=== PATIENT | male | born 1940 | race Caucasian/White ===

== ENCOUNTER → 2017-01-19 | Outpatient (CLI) | payer OTHER, MEDICAID | LOC: BMCIMAGING 15:08 | PROVIDERS: ATTEND Internal Medicine Cardiovascular Disease | DX: R91.1 Solitary pulmonary nodule (principal); I65.23 Occlusion and stenosis of bilateral carotid arteries; I77.810 Thoracic aortic ectasia; Z86.73 Personal history of transient ischemic attack (TIA), and cerebral infarction without residual deficits; Z95.1 Presence of aortocoronary bypass graft ==

== ENCOUNTER → 2017-01-22 | Outpatient (CLI) | payer OTHER, MEDICAID | LOC: FIMAGING 12:53 | PROVIDERS: ATTEND Internal Medicine Cardiovascular Disease | DX: R91.1 Solitary pulmonary nodule (principal); R05 Cough; R91.8 Other nonspecific abnormal finding of lung field; R42 Dizziness and giddiness; I48.91 Unspecified atrial fibrillation; I10 Essential (primary) hypertension; Z95.1 Presence of aortocoronary bypass graft; Z86.73 Personal history of transient ischemic attack (TIA), and cerebral infarction without residual deficits ==

== ENCOUNTER → 2017-02-23 | Outpatient (CLI) | payer OTHER, MEDICAID ==
[~2017-02-23] MED LIST: IOPAMIDOL (ISOVUE 370) 100 ML BTL IV ONE
== END ==
LOC: FIMAGING 15:13
PROVIDERS: ATTEND Psychiatry & Neurology Neurology
DX: R42 Dizziness and giddiness (principal); J32.0 Chronic maxillary sinusitis; I70.8 Atherosclerosis of other arteries; I65.23 Occlusion and stenosis of bilateral carotid arteries
CPT/HCPCS: 70496; 70498; 70551; Q9967

== ENCOUNTER 2017-12-03 17:18 | Observation (INO) | payer MEDICAID, OTHER ==
--- NOTE | 2017-12-03 17:24 | EDPHY ---
H & P Time Seen by Provider: 12/03/17 17:24 HPI/ROS: CHIEF COMPLAINT: Chest tightness HISTORY OF PRESENT ILLNESS: The patient arrives by EMS, says that 1 hr before arrival had chest tightness at his living facility. Since resolved. Symptoms lasted about half an hour. Did not radiate, not associated with cough or shortness of breath dizziness lightheadedness or syncope. Was not positional or exertional. He has had previous stenting and bypass but never had a myocardial infarction. Symptoms were mild at the time and gone now. REVIEW OF SYSTEMS: Eye: no change in vision ENT: no sore throat Cardiac: HPI Pulmonary: no cough or SOB Abdomen: no vomiting, diarrhea, abdominal pain Musculoskeletal: no back pain Skin: no rash Neuro: no headache Constitutional: no fever : no urinary symptoms A comprehensive 10 point review of systems is otherwise negative aside from elements mentioned in the history of present illness. However have further history and review of systems is limited by the patient's self-described poor memory. PAST MEDICAL HISTORY: AFib, coronary disease with bypass and stenting, dementia , stroke Social history: Nonsmoker General Appearance: Alert and conversant, cooperative. Eyes: No scleral icterus. ENT, Mouth: Normal mucous membranes. Respiratory: Normal respiratory effort, breath sounds equal, lungs are clear to auscultation. Cardiovascular: Regular rate and rhythm. Gastrointestinal: Abdomen is soft and non tender. Neurological: Alert, face symmetric, normal motor and sensory in extremities. Skin: Warm and dry, no rashes. Musculoskeletal: No peripheral edema. Psychiatric: Not agitated. Emergency Department course/MDM: Oral aspirin, EKG chest x-ray and troponin. Not short of breath, symptoms resolved, pulmonary embolism would be unlikely. 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 Chest tightness with history of previous documented coronary disease and bypass surgery. Admission for further risk stratification warranted. Discussed with son who states understanding and agreement with the plan. Smoking Status: Former smoker Constitutional: Initial Vital Signs Temperature (C) 36.8 C 12/03/17 17:25 Heart Rate 76 12/03/17 17:25 Respiratory Rate 18 12/03/17 17:25 Blood Pressure 165/85 H 12/03/17 17:25 O2 Sat (%) 93 12/03/17 17:25 O2 Delivery Mode Room Air Allergies/Adverse Reactions: No Known Allergies Allergy (Verified 12/03/17 19:36) Home Medications: Medication Instructions Recorded Atenolol [Tenormin 25 mg (*)] 12.5 mg PO BID 12/03/17 Docusate Sodium [Colace 100 MG (*)] 100 mg PO BID 12/03/17 Famotidine [Pepcid 20 MG (*)] 20 mg PO BID 12/03/17 Levothyroxine [Synthroid 50 mcg 50 mcg PO MOTUWETHFR@0600 12/03/17 (*)] Mirabegron [Myrbetriq] 25 mg PO HS 12/03/17 Polyethylene Glycol 3350 [Miralax 17 gm PO DAILY 12/03/17 17 gm (*)] Rivaroxaban [Xarelto] 20 mg PO DAILY 12/03/17 Sennosides [Senokot] 17.2 mg PO HS 12/03/17 Medical Decision Making - Diagnostics EKG Interpretation: 12-lead EKG interpreted by me; official reading is in computer system. My interpretation is sinus rhythm rate 64 with biphasic anterior T-waves in V1 and V2. Imaging Results: Imaging Impressions Chest X-Ray 12/03/17 17:29 Impression: Prior cardiac surgery. No acute cardiopulmonary abnormality.. Imaging: I viewed and interpreted images myself Differential Diagnosis: Differential diagnosis considered for chest pain including but not limited to myocardial ischemia, aortic dissection, pericarditis, pulmonary embolus, chest wall pain, pleural inflammation and pulmonary infectious causes. Consult/Admit Bed Type: [place] [address] - Data Points Laboratory Results: Laboratory Results 12/03/17 17:25 12/03/17 17:25 12/03/17 12/03/17 12/03/17 17:32 17:25 17:25 WBC 8.56 10^3/uL 10^3/uL (3.80-9.50) RBC 5.21 10^6/uL 10^6/uL (4.40-6.38) Hgb 15.7 g/dL g/dL (13.7-17.5) Hct 45.2 % % (40.0-51.0) MCV 86.8 fL fL (81.5-99.8) MCH 30.1 pg pg (27.9-34.1) MCHC 34.7 g/dL g/dL (32.4-36.7) RDW 13.4 % % (11.5-15.2) Plt Count 208 10^3/uL 10^3/uL (150-400) MPV 10.6 fL fL (8.7-11.7) Neut % (Auto) 54.8 % % (39.3-74.2) Lymph % (Auto) 32.6 % % (15.0-45.0) Elbert % (Auto) 8.8 % % (4.5-13.0) Eos % (Auto) 2.9 % % (0.6-7.6) Baso % (Auto) 0.7 % % (0.3-1.7) Nucleat RBC Rel Count 0.0 % % (0.0-0.2) Absolute Neuts (auto) 4.69 10^3/uL 10^3/uL (1.70-6.50) Absolute Lymphs (auto) 2.79 10^3/uL 10^3/uL (1.00-3.00) Absolute Monos (auto) 0.75 10^3/uL 10^3/uL (0.30-0.80) Absolute Eos (auto) 0.25 10^3/uL 10^3/uL (0.03-0.40) Absolute Basos (auto) 0.06 10^3/uL 10^3/uL (0.02-0.10) Absolute Nucleated RBC 0.00 10^3/uL 10^3/uL (0-0.01) Immature Gran % 0.2 % % (0.0-1.1) Immature Gran # 0.02 10^3/uL 10^3/uL (0.00-0.10) Sodium 142 mEq/L mEq/L (135-145) Potassium 4.1 mEq/L mEq/L (3.3-5.0) Chloride 104 mEq/L mEq/L (97-110) Carbon Dioxide 28 mEq/l mEq/l (22-31) Anion Gap 10 mEq/L mEq/L (8-16) BUN 20 mg/dL mg/dL (7-23) Creatinine 1.1 mg/dL mg/dL (0.7-1.3) Estimated GFR > 60 Glucose 78 mg/dL mg/dL (70-100) Calcium 9.7 mg/dL mg/dL (8.5-10.4) POC Troponin I 0.01 ng/mL ng/mL (0.00-0.08) Medications Given: Discontinued Medications Aspirin (Aspirin) 324 mg PO EDNOW ONE Stop: 12/03/17 17:30 Last Admin: 12/03/17 17:34 Dose: 324 mg Point of Care Test Results: Chemistry 12/03/17 17:32 POC Troponin I 0.01 ng/mL ng/mL (0.00-0.08) Departure - Departure Disposition: [facility] Inpatient Acute Clinical Impression: Chest pain Qualifiers: Chest pain type: unspecified Qualified Code(s): R07.9 - Chest pain, unspecified Condition: Good
[2017-12-03] MEDS ORDERED: ASPIRIN 81 MG CHEWABLE TAB PO ONE (17:29)
--- NOTE | 2017-12-03 17:40 | CPEKG ---
Test Reason : OPEN Blood Pressure : / mmHG Vent. Rate : 064 BPM Atrial Rate : 064 BPM P-R Int : 266 ms QRS Dur : 093 ms QT Int : 413 ms P-R-T Axes : 195 051 058 degrees QTc Int : 426 ms Sinus or ectopic atrial rhythm Prolonged AR interval Abnormal R-wave progression, early transition Borderline ST elevation, anterior leads Confirmed by Perez Gómez ([id number]) on 12/03/2017 5:40:21 PM Referred By: Confirmed By:Perez Gómez
[2017-12-03 17:58] LABS: PLATELET COUNT 208 10^3/uL (150-400)
[2017-12-03] MEDS ORDERED: ACETAMINOPHEN 325 MG TAB PO PRN (21:53)
[2017-12-03] MEDS ORDERED: ONDANSETRON DISINTEGRATING 4 MG TAB PO PRN (21:53)
[2017-12-03] MEDS ORDERED: ONDANSETRON 4 MG/2 ML VIAL IVP PRN (21:53)
--- NOTE | 2017-12-03 21:57 | PDGENHP ---
History and Physical - Chief Complaint chest pain - History of Present Illness 77 yo male admitted with chest pain while at his living facility. None exertional. Symptoms lasted about half an hour. His symptoms have fully resolved. Pain Did not radiate, not associated with cough or shortness of breath dizziness lightheadedness or syncope. Was not positional or exertional. He has had previous stenting and bypass. In the ER, EK was non alarming and trop was negative. He was given an Aspirin and admitted PAST MEDICAL HISTORY: AFib, coronary disease with bypass and stenting, dementia , stroke Social history: Nonsmoker FmHx: non contributory History Information - Allergies/Home Medication List Allergies/Adverse Reactions: No Known Allergies Allergy (Verified 12/03/17 19:36) Home Medications: Atenolol [Tenormin 25 mg (*)] 12.5 mg PO BID 12/03/17 [Last Taken 12/03/17 15:00 ] Docusate Sodium [Colace 100 MG (*)] 100 mg PO BID 12/03/17 [Last Taken 12/03/17] Famotidine [Pepcid 20 MG (*)] 20 mg PO BID 12/03/17 [Last Taken 12/03/17] Levothyroxine [Synthroid 50 mcg (*)] 50 mcg PO MOTUWETHFR@0600 12/03/17 [Last Taken 12/03/17] Mirabegron [Myrbetriq] 25 mg PO HS 12/03/17 [Last Taken 12/03/17] Polyethylene Glycol 3350 [Miralax 17 gm (*)] 17 gm PO DAILY 12/03/17 [Last Taken 12/03/17] Rivaroxaban [Xarelto] 20 mg PO DAILY 12/03/17 [Last Taken 12/03/17] Sennosides [Senokot] 17.2 mg PO HS 12/03/17 [Last Taken 12/03/17] I have personally reviewed and updated: medical history, social history - Social History Smoking Status: Former smoker Review of Systems Review of Systems: ROS: 10pt was reviewed & negative except for what was stated in HPI & below Physical Exam Physical Exam: Temp Pulse Resp BP Pulse Ox 36.9 C 58 L 14 135/72 H 95 12/03/17 20:53 12/03/17 20:53 12/03/17 20:53 12/03/17 20:53 12/03/17 20:53 Constitutional: no apparent distress Eyes: PERRL Ears, Nose, Mouth, Throat: moist mucous membranes, hearing normal Cardiovascular: regular rate and rhythym, No edema Respiratory: no respiratory distress, no rales or rhonchi Gastrointestinal: normoactive bowel sounds Skin: warm Musculoskeletal: generalized weakness Neurologic: No AAOx3 Psychiatric: interacting appropriately, not anxious, not encephalopathic Lymph, Heme, Immunologic: No petechiae Lab Data & Imaging Review 12/03/17 17:25 12/03/17 17:25 WBC 8.56 10^3/uL (3.80-9.50) 12/03/17 17:25 RBC 5.21 10^6/uL (4.40-6.38) 12/03/17 17:25 Hgb 15.7 g/dL (13.7-17.5) 12/03/17 17:25 Hct 45.2 % (40.0-51.0) 12/03/17 17:25 MCV 86.8 fL (81.5-99.8) 12/03/17 17:25 MCH 30.1 pg (27.9-34.1) 12/03/17 17:25 MCHC 34.7 g/dL (32.4-36.7) 12/03/17 17:25 RDW 13.4 % (11.5-15.2) 12/03/17 17:25 Plt Count 208 10^3/uL (150-400) 12/03/17 17:25 MPV 10.6 fL (8.7-11.7) 12/03/17 17:25 Neut % (Auto) 54.8 % (39.3-74.2) 12/03/17 17:25 Lymph % (Auto) 32.6 % (15.0-45.0) 12/03/17 17:25 [place] % (Auto) 8.8 % (4.5-13.0) 12/03/17 17:25 Eos % (Auto) 2.9 % (0.6-7.6) 12/03/17 17:25 Baso % (Auto) 0.7 % (0.3-1.7) 12/03/17 17:25 Nucleat RBC Rel Count 0.0 % (0.0-0.2) 12/03/17 17:25 Absolute Neuts (auto) 4.69 10^3/uL (1.70-6.50) 12/03/17 17:25 Absolute Lymphs (auto) 2.79 10^3/uL (1.00-3.00) 12/03/17 17:25 Absolute Monos (auto) 0.75 10^3/uL (0.30-0.80) 12/03/17 17:25 Absolute Eos (auto) 0.25 10^3/uL (0.03-0.40) 12/03/17 17:25 Absolute Basos (auto) 0.06 10^3/uL (0.02-0.10) 12/03/17 17:25 Absolute Nucleated RBC 0.00 10^3/uL (0-0.01) 12/03/17 17:25 Immature Gran % 0.2 % (0.0-1.1) 12/03/17 17:25 Immature Gran # 0.02 10^3/uL (0.00-0.10) 12/03/17 17:25 Sodium 142 mEq/L (135-145) 12/03/17 17:25 Potassium 4.1 mEq/L (3.3-5.0) 12/03/17 17:25 Chloride 104 mEq/L (97-110) 12/03/17 17:25 Carbon Dioxide 28 mEq/l (22-31) 12/03/17 17:25 Anion Gap 10 mEq/L (8-16) 12/03/17 17:25 BUN 20 mg/dL (7-23) 12/03/17 17:25 Creatinine 1.1 mg/dL (0.7-1.3) 12/03/17 17:25 Estimated GFR > 60 12/03/17 17:25 Glucose 78 mg/dL (70-100) 12/03/17 17:25 Calcium 9.7 mg/dL (8.5-10.4) 12/03/17 17:25 POC Troponin I 0.01 ng/mL (0.00-0.08) 12/03/17 17:32 Assessment & Plan Assessment: #Chest pain (Acute) -He has risk factors for CAD but his CP is completely resolved currently and w/ u thus far has been negative -Will obtain TTE -Serial trop's -I will make his NPO at midnight in case TTE (which cant be done until am) is abnormal and we want to stress him. Otherwise, if TTE and trops/tele are unremarkable, he could likely be d/c with op f/u #Afib: -cont BB -cont Xarelto #chronic AC #Hx of Stroke #Hypothyroidism #Gerd Plan: per above cont home meds as appropriate can likely d/c tomorrow pending w/u
[2017-12-04 04:11] LABS: PLATELET COUNT 182 10^3/uL (150-400)
[2017-12-04] MEDS ORDERED: RIVAROXABAN 20 MG TAB PO SCH (09:00)
[2017-12-04] MEDS ORDERED: POLYETHYLENE GLYCOL 3350 17 GM PKT PO SCH (09:00)
[2017-12-04] MEDS ORDERED: DOCUSATE SODIUM 100 MG CAP PO SCH (09:00)
[2017-12-04] MEDS ORDERED: ATENOLOL 25 MG TAB PO SCH (09:00)
[2017-12-04] MEDS ORDERED: FAMOTIDINE 20 MG TAB PO SCH (09:00)
[2017-12-04 12:09] VITALS: BP 171/91
--- NOTE | 2017-12-04 13:06 | ECHO ---
[email or web address] [address] [address] Main: [phone] Fax: Transthoracic Echocardiogram Name: APRIL COLLINS MR#: [id number] Study Date: 12/04/2017 Study Time: 11:25 AM Date of : 1940 Age: 77 year(s) Height: 182.9 cm (72 in.) Weight: 70.76 kg (156 lb.) BSA: 1.92 m2 Gender: Male Examination: Echo Indication: Wellens Syndrome, Chest Pain Image Quality: Contrast: Requested by: Ramon Woodruff BP: 151 mmHg/75 mmHg Heart Rate: Rhythm: Indication: Wellens Syndrome, Chest Pain Procedure Staff Swimming Pool Servicer: Ayan Montilla RDCS Reading Physician: Nehemias Calderón MD Requesting Provider: Conclusions: Normal global systolic LV function. EF is 60 %. There is paradoxic septal motion suggestive of bundle branch block, paced cardiac rhythm, or prior cardiac surgery. Diastolic dysfunction is present. . The left atrium is mildly dilated. The right atrium is mildly dilated. Mild mitral valve regurgitation is present. Mild aortic valve regurgitation is present. Moderate tricuspid regurgitation is present. Based on moderate tricuspid regurgitation, a repeat echo may be considered in 1 yr unless there is a change in clinical status. Measurements: Chambers Valvular Assessment AV/MV Valvular Assessment TV/PV Normal Normal Normal Name Value Range Name Value Range Name Value Range Ao Lizette (MM): 2.8 cm (2.2 cm-3.7 AV Vmax: 0.89 m/s (1 m/s-1.7 TR Vmax: 2.81 mm/s ( - ) cm) m/s) TR PGmax: 32 mmHg ( - ) IVSd (2D): 0.7 cm (0.6 cm-1.1 AV maxP mmHg ( - ) syst. PAP: 37 mmHg ( - ) cm) AV meanP mmHg ( - ) PV Vmax: 0.71 m/s (0.6 m/s-0.9 LVDd (2D): 4.1 cm (4.2 cm-5.9 LVOT Vmax: 0.66 m/s (0.7 m/s-1.1 m/s) cm) m/s) PV PGmax: 2 mmHg ( - ) LVDs (2D): 2.8 cm (2.1 cm-4 AR (PHT): 656 ms ( - ) cm) MV E Vmax: 0.76 m/s ( - ) LVPWd (2D): 0.9 cm (0.6 cm-1 cm) LVEF (2D): 60 (>=54 %) Continued Measurements: Patient: APRIL COLLINS Study Date: 12/04/2017 Page 1 of 2 11:25 AM Chambers Valvular Assessment AV/MV Valvular Assessment TV/PV Name Value Name Value Name Value LADs Lon.3 cm MV E' Septal: 0.06 m/s CVP (est.): 5 mmHg LA Area: 22.5 cm2 MV E/E' Septal: 12.60 LA Volume: 82 ml MV E/E' Lateral: 8.70 LA Volume Index: 42.7 ml/m2 AR Vmax: 2.84 cm/s Findings: Left Ventricle: Normal size left ventricle. No LV hypertrophy. Normal global systolic LV function. EF is 60 %. There is paradoxic septal motion suggestive of bundle branch block, paced cardiac rhythm, or prior cardiac surgery. Diastolic dysfunction is present. . Right Ventricle: Normal size right ventricle. Left Atrium: The left atrium is mildly dilated. Right Atrium: The right atrium is mildly dilated. Mitral Valve: No mitral valve calcification is noted. No mitral stenosis is present. Mild mitral valve regurgitation is present. Aortic Valve: Mild aortic cusp calcification is noted. Mild aortic valve regurgitation is present. No aortic valve stenosis is present. Tricuspid Valve: The tricuspid valve appears normal. The pulmonary artery pressure is normal. Moderate tricuspid regurgitation is present. Pulmonic Valve: The pulmonic valve is normal in appearance and function. Aorta: The aorta is normal. Pericardium: No pericardial effusion. (No Signature Object) Patient: APRIL COLLINS Study Date: 12/04/2017 Page 2 of 2 11:25 AM [id number]
--- NOTE | 2017-12-04 15:54 | GDS ---
PRIMARY CARE PROVIDER: Dr. Pillai. DISCHARGE DIAGNOSIS: Chest pain. HISTORY OF PRESENT ILLNESS: The patient is a 77-year-old gentleman with a past medical history of co ronary artery disease with a history of CABG, as well as percutaneous intervention, who resides at [facility], reported a complaint of chest pain after exertional effort. He was admitted for serial en zymes and further monitoring. On the day after admission, he was not having any recurrent or escalat ing chest pain. His troponins overnight were undetectable and followup ECGs did not show any concern ing changes. He did, as well, undergo an echocardiogram which showed normal systolic left ventricula r function with an estimated ejection fraction at 60%. Diastolic dysfunction was noted. Moderate tr icuspid regurgitation was also seen. With the negative troponins, it was felt that he could discharg e from the hospital with a plan for short-term cardiology followup. I talked with his son, Adeel, over the phone today and he states he has had a cardiology consultation here at [facility] at some poi nt in the past and I recommended that we plan for short-term follow up to discuss outpatient stress t esting potentially. He seemed agreeable to this plan. HOSPITAL COURSE BY PROBLEM: 1. Chest pain, suspect noncardiac related, but he does have cardiac risk factors. I recommend that we plan on short-term followup to reassess and discuss outpatient cardiac stress testing. 2. Dementia, by records. No current medical therapy. 3. Coronary artery disease, history of CABG and percutaneous intervention. Continue with current az dical management. I do not see that the patient is on statin therapy. 4. Atrial fibrillation, rate controlled with atenolol 12.5 mg twice a day. Patient is anticoagulate d with Xarelto. 5. Hypothyroidism. Continue current dosing of levothyroxine at 50 mcg daily. 6. Disposition, the patient appears stable for discharge home today. EXAM: On date of discharge: VITAL SIGNS: Temperature 96.4, blood pressure 156/80, heart rate 64, r espirations 94% on room air. GENERAL: Patient appeared comfortable. He is awake, alert, conversant , no acute distress. HEART: Irregular. No significant murmurs noted. LUNGS: Clear to auscultatio n with normal respiratory effort. ABDOMEN: Soft, nontender, nondistended. : No Crandall catheter i n place. EXTREMITIES: No calf pain with palpation or lower extremity edema. NOTABLE STUDIES: Echocardiogram as detailed above. Troponins negative x3. LDL cholesterol 109, TSH 3.0. Hemoglobin A1c currently pending. DISCHARGE MEDICATIONS: 1. Levothyroxine 50 mcg every Wednesday, Wednesday, Wednesday, and Wednesday. 2. Atenolol 12.5 mg twice a day. 3. MiraLAX 17 g daily. 4. Senokot 17.2 mg nightly. 5. Pepcid 20 mg twice a day. 6. Colace 100 mg twice a day. 7. Xarelto 20 mg daily. 8. Myrbetriq 25 mg nightly. DISCHARGE INSTRUCTIONS: I have recommended a followup visit with his respiratory care instructor at [facility] i n 1-2 weeks' time for reassessment and discuss the potential for outpatient cardiac stress testing. Also recommend to follow up with Dr. Pillai, his primary care provider. 35 minutes time dedicated to discharge efforts. /[id number]/MODL
--- NOTE | 2017-12-04 16:05 | CPEKG ---
Test Reason : OPEN Blood Pressure : / mmHG Vent. Rate : 064 BPM Atrial Rate : 195 BPM P-R Int : 352 ms QRS Dur : 089 ms QT Int : 438 ms P-R-T Axes : 000 075 075 degrees QTc Int : 452 ms Sinus rhythm with 1st degree AV block Abnormal R-wave progression, early transition Confirmed by Nehemias Calderón ([id number]) on 12/04/2017 4:05:26 PM Referred By: Confirmed By:Nehemias Calderón
[2017-12-04] MEDS ORDERED: SENNOSIDES 1 TAB PO SCH (21:00)
[2017-12-04] MEDS ORDERED: Mirabegron [Myrbetriq] 25 MG PO SCH (21:00)
--- NOTE | 2017-12-05 10:01 | ASMTLACE ---
LACE Length of stay for Answers: Less than 1 day current admission Acuity / Level of Answers: No Care: Did the patient have an inpatient admission? Comorbidities - select Answers: Cerebrovascular disease all that apply (CVA, TIA, aneurysms, vasc ular dementia) Coronary Artery Disease Other Notes: Dementia, Afib # of Emergency department Answers: 1-2 visits in the last 6 months Score: 5 Date Signed: 12/05/2017 10:01 AM Electronically Signed By:Monse Michelle RN
--- NOTE | 2017-12-05 10:05 | ASDISCHSUM ---
Discharge Information Plan Status:Home with No Needs Medically Cleared to Leave:12/04/2017 Discharge Date:12/04/2017 04:23 PM CM D/C Disposition:Home, Routine, Self-Care ADT D/C Disposition:Custodial Facility Projected Discharge Date:12/04/2017 04:23 PM Transportation at D/C:Family Discharge Delay Reason: Follow-Up Date:12/04/2017 04:23 PM Discharge Slot:2 - 12:01 pm - 18:00 pm Final Diagnosis:Afib, chest discomfort, hx CAD, CABG, CVA Placement Information Patient Contact Information Contact Name:MARLENA Relationship:Son Address: Work Phone: [place]:ANNALISA Alternate Phone: [facility]/Tour Engine Code:[place] Email: Financial Information Financial Class:Medicare Primary Plan Desc:MEDICARE OUTPATIENT Primary Plan Number:[id number] Secondary Plan Desc: Secondary Plan Number: Assessment Information LACE LACE Length of stay for Answers: Less than 1 day current admission Acuity / Level of Answers: No Care: Did the patient have an inpatient admission? Comorbidities - select Answers: Cerebrovascular disease all that apply (CVA, TIA, aneurysms, vasc ular dementia) Coronary Artery Disease Other Notes: Dementia, Afib # of Emergency department Answers: 1-2 visits in the last 6 months Score: 5 Date Signed: 12/05/2017 10:01 AM Electronically Signed By:Monse Michelle RN [facility] IAM Progress Note CM Note CM Note Notes: Note for Wednesday12/04/17, late entry - [employer] down for maintenance Wednesday afternoon/evening Reviewed chart, spoke with DAPHNEY Vernon regarding discharge plan of care, pt's progress. Pt admitted with chest discomfort, new onset atrial fibrillation. History includes CAD with CABG, CVA, dementia. Pt lives at [facility] independent living. Per Janeen, pt to discharge home independently with no identified needs. Pt's son to provide transport back to [facility]. IM/UGALDE forms signed, placed in chart. Pt to follow up as directed. CM available for any further issues or concerns. Discharge Plan: Home independently Date Signed: 12/05/2017 10:03 AM Electronically Signed By:Monse Michelle RN Intervention Information Intervention Type:*IM-Signed Date of Service:12/05/2017 10:00 AM Patient Type:Observation Staff Member:DAPHNEY Michelle Taylor Hours: Discipline: Severity: Comment: Intervention Type:*UGALDE-Signed Date of Service:12/05/2017 10:00 AM Patient Type:Observation Staff Member:DAPHNEY Michelle Taylor Hours: Discipline: Severity: Comment:
[2017-12-06] MEDS ORDERED: LEVOTHYROXINE 50 MCG TAB PO SCH (06:00)
== END 2017-12-04 16:23 ==
LOC: EDUNIT# → F2W 20:10
PROVIDERS: ADMIT Family Medicine; ATTEND Internal Medicine
DX: R07.9 Chest pain, unspecified (principal); F03.90 Unspecified dementia, unspecified severity, without behavioral disturbance, psychotic disturbance, mood disturbance, and anxiety; I48.91 Unspecified atrial fibrillation; I25.10 Atherosclerotic heart disease of native coronary artery without angina pectoris; E03.9 Hypothyroidism, unspecified; K21.9 Gastro-esophageal reflux disease without esophagitis; Z95.5 Presence of coronary angioplasty implant and graft; Z95.3 Presence of xenogenic heart valve; Z86.73 Personal history of transient ischemic attack (TIA), and cerebral infarction without residual deficits; Z87.891 Personal history of nicotine dependence; Z79.01 Long term (current) use of anticoagulants
CPT/HCPCS: 71046; 93005; 93306; 97116; 97161; G0378; G8978; G8979; G8980; 84484-PO

== ENCOUNTER → 2018-05-03 | Outpatient (CLI) | payer MEDICAID, OTHER | LOC: FIMAGING 10:32 | PROVIDERS: ATTEND Family Medicine | DX: R13.12 Dysphagia, oropharyngeal phase (principal); Z86.73 Personal history of transient ischemic attack (TIA), and cerebral infarction without residual deficits | CPT/HCPCS: 92611-GN ==